=== PATIENT | male | born 1975 | race Caucasian/White ===

== ENCOUNTER → 2021-03-12 | Outpatient (CLI) | payer BC ==
--- NOTE | 2021-03-12 15:35 | MR ---
EXAMINATION TYPE: MR shoulder RT wo con DATE OF EXAM: 03/12/2021 COMPARISON: None HISTORY: Right shoulder pain Multiplanar multiecho imaging of the right shoulder was performed without contrast. There is full-thickness tear of the supraspinatus tendon near the attachment on the greater tuberosit y of the humerus. There is no retraction. There is subacromial joint space narrowing and impingement. There is hypertrophic spurring at the AC joint. The biceps tendon is intact. Subscapularis tendon is intact. The glenoid cecille appear intact. There i s mild narrowing of the glenohumeral joint space. IMPRESSION: There is anterior full-thickness tear of the supraspinatus tendon. There is small subdeltoid effusion . Minimal shoulder joint effusion. 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 Subacromial join t space narrowing. Multiple small tears in the supraspinatus tendon in the subacromial joint space.
== END | disposition home or self-care (01) ==
LOC: RADMRIMAIN 14:46
PROVIDERS: ATTEND Orthopaedic Surgery
DX: M75.121 Complete rotator cuff tear or rupture of right shoulder, not specified as traumatic (principal); M19.011 Primary osteoarthritis, right shoulder

== ENCOUNTER → 2021-04-29 | Outpatient (CLI) | payer BC ==
[2021-04-29 08:08] LABS: Basophils # (A) 0.1 k/uL (0-0.2); Basophils % (A) 1 %; Eosinophils # (A) 0.3 k/uL (0-0.7); Eosinophils % (A) 3 %; HCT 47.4 % (39.0-53.0); HGB 15.7 gm/dL (13.0-17.5); Lymphocytes % (A) 20 %; MCH 29.3 pg (25.0-35.0); MCHC 33.1 g/dL (31.0-37.0); MCV 88.4 fL (80.0-100.0); Mean Platelet Volume 7.8; Monocytes # (A) 0.5 k/uL (0-1.0); Monocytes % (A) 5 %; Neutrophils # (A) 7.2 k/uL (1.3-7.7); Neutrophils % (A) 70 %; Platelet Count 297 k/uL (150-450); RBC 5.36 m/uL (4.30-5.90); RDW 14.2 % (11.5-15.5); WBC 10.4 k/uL (3.8-10.6)
== END | disposition home or self-care (01) ==
LOC: LABPAT 07:05
PROVIDERS: ATTEND Orthopaedic Surgery
DX: Z01.812 Encounter for preprocedural laboratory examination (principal); M75.41 Impingement syndrome of right shoulder
CPT/HCPCS: 36415; 80051; 85025

== ENCOUNTER 2021-05-13 06:59 | Day surgery (SDC) | payer BC ==
[2021-05-10 10:04] VITALS: BMI 29.8
--- NOTE | 2021-05-12 09:06 | HP ---
HISTORY AND PHYSICAL CHIEF COMPLAINT: Right shoulder pain. 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 He is having pain with overhead use and activity. He notes limited motion. He has significant nighttime symptoms. He has tried injections in addition to therapy along with medications with only partial temporary relief. PAST MEDICAL HISTORY: Significant for hypertension. PAST SURGICAL HISTORY: Negative. CURRENT MEDICATIONS: Lisinopril and Motrin. He denies drug allergies. FAMILY HISTORY: Noncontributory. SOCIAL HISTORY: Significant for 1 pack per day tobacco use. REVIEW OF SYSTEMS: Sixteen-point review of systems is otherwise reviewed and is noncontributory. PHYSICAL EXAMINATION: On examination, the patient is approximately 5 foot 6, 183 pounds of endomorphic habitus. HEENT exam is nonfocal. Neck is supple. He has painless cervical spine motion with negative Spurling's. Active range of motion of the right shoulder. forward elevation 155 degrees, external rotation of the arm side 35 degrees internal rotation to L2. Motor strength is 5 minus over 5 for external rotation and abduction. Impingement test, Neer test, and Speed test are positive. His distal neurovascular exam appears intact in the right upper extremity. MRI report right shoulder 03/12/2021 shows evidence of a full-thickness tear of the anterior aspect of the supraspinatus. IMPRESSION: Right shoulder impingement with symptomatic rotator cuff tear. RECOMMENDATIONS: I talked to the patient at length regarding his condition along with treatment options. At this point, he is quite symptomatic and limited despite previous conservative measures. After thorough discussion, he opts to proceed with surgery. We will plan to proceed with arthroscopic evaluation with probable subacromial decompression and rotator cuff repair. We will likely perform that as an outpatient procedure. Risks and benefits were discussed at length in layman's terms. MMODL / IJN: [id number] /
[~2021-05-13 06:59] MED LIST: DEXAMETHASONE SOD PHOSPHATE 4 MG/ML 1 ML VIAL IV ONE; LACTATED RINGERS 1,000 ML IV SCH; LIDOCAINE 1% (10MG/ML) FOR IV START INTRADERMA PRN; MIDAZOLAM 2 MG/2 ML VIAL IV PRN; ONDANSETRON 4 MG/2 ML VIAL IVP ONE
[2021-05-13] MEDS ORDERED: HYDROmorphone 0.5 MG/0.5 ML SYRINGE IVP PRN (07:00)
[2021-05-13 07:25] VITALS: RESP 16
[2021-05-13] MEDS ORDERED: MIDAZOLAM 2 MG/2 ML VIAL IVP ONE (07:59)
[2021-05-13] MEDS ORDERED: LIDOCAINE 1% INJ 10MG/ML (20 ML MDV) ONE (08:50)
[2021-05-13] MEDS ORDERED: ROPIVACAINE 5 MG/ML 30 ML VIAL ONE (08:50)
[2021-05-13] MEDS ORDERED: DEXAMETHASONE SOD PHOSPHATE 4 MG/ML 1 ML VIAL ONE (08:50)
[2021-05-13] MEDS ORDERED: SUCCINYLCHOLINE CHLORIDE 100 MG/5 ML SYR IV ONE (08:50)
[2021-05-13] MEDS ORDERED: NEOSTIGMINE 1 MG/ML 10 ML VIAL ONE (08:50)
[2021-05-13] MEDS ORDERED: GLYCOPYRROLATE 0.2 MG/ML 2 ML VIAL ONE (08:50)
[2021-05-13] MEDS ORDERED: PROPOFOL 10 MG/ML 20 ML VIAL IV ONE (08:50)
[2021-05-13] MEDS ORDERED: fentaNYL (PF) 50 MCG/ML 2 ML AMP ONE (08:50)
[2021-05-13] MEDS ORDERED: ROCURONIUM 10 MG/ML (5 ML VIAL) IV ONE (08:50)
[2021-05-13] MEDS ORDERED: ePHEDrine SULFATE/0.9% NACL/PF 50 MG/5 ML SYRINGE IV ONE (08:50)
[2021-05-13] MEDS ORDERED: EPINEPHrine (PF) 1 ML in SODIUM CHLORIDE 0.9% IRRIGATIO 3,000 ML IRRIGATION ONE ×8 (08:53)
--- NOTE | 2021-05-13 10:16 | P.OP ---
Date of Procedure: 05/13/21 Preoperative Diagnosis: Symptomatic right rotator cuff tear Postoperative Diagnosis: 2 cm full-thickness right rotator cuff tear, acromioclavicular joint arthritis, subacromial impingement, high-grade partial-thickness tear long head of the biceps Procedure(s) Performed: Right shoulder arthroscopic subacromial decompression/distal clavicular resection/rotator cuff repair/biceps tenotomy Implants: Arthrex 4.75 mm swivel lock anchor times one, 5.5 mm swivel lock anchor 1 Anesthesia: JACQUELINE, regional Surgeon: Chacho Navarrete Data Manager #1: Kristofer Ramirez Estimated Blood Loss (ml): 10 Pathology: none sent Condition: stable Disposition: PACU Indications for Procedure: The patient's a 45-year-old male presents with persistent/progressive right shoulder pain despite conservative measures. A discussion of the risks and benefits of operative intervention versus continued conservative measures was made with patient. He opted to proceed with surgery. Operative risks to include infection, neurovascular injury, development of blood clots, possible tendon rerupture, possible postoperative stiffness and need for subsequent procedures was discussed. Informed consent was obtained. Operative Findings: As below Description of Procedure: The patient was brought to the operating room, and after induction of general anesthesia was placed in a beachchair position. A preoperative interscalene block was placed for postoperative analgesia. I examined the right shoulder. There was no gross block to passive motion or gross glenohumeral instability. The right upper extremity was prepped and draped in normal fashion. The bony outlines the acromion, distal clavicle, and coracoid process were outlined with a skin marker. The glenohumeral joint was inflated with 50 mL of saline utilizing a spinal needle from posterior approach. A posterior portal was made through a 5 mm skin incision 1 cm medial and inferior to the posterior lateral border time. A blunt trocar was used to easily into the joint. Diagnostic arthroscopy was performed. An anterior portal was made just lateral to the coracoid process entering the joint above the subscapularis tendon. The subscapularis tendon appeared to be intact. Anterior labrum was intact. The inferior recess was inspected. The posterior labrum was intact. There was a high-grade partial-thickness tear of the long head of the biceps involving interarticular portion. It was elected to proceed with release at this point. This was released from the superior labrum with electrocautery and was allowed to retract to the bicipital groove. On inspection the rotator cuff, a full- thickness tear involving the supraspinatus was noted with mild retraction. A lateral portal was made 2 centimeters inferior to the anterior lateral border of the acromion. The rotator cuff was then mobilized with a traction suture. This was then easily brought back to the greater tuberosity. The soft tissue on the undersurface of the acromion was debrided with a motorized shaver and electrocautery clearly defining the anterior medial and lateral borders as well as the distal clavicle. An anterior inferior acromioplasty was performed with a motorized rachel starting anterolateral, then extending this posteriorly, then extending this medially. I converted to a flat acromion and this was verified in the posterior and lateral viewing portals. There was impingement by the distal clavicle therefore the distal 4 mm was resected with a motorized bur. The greater tuberosity was lightly decorticating with a shaver down to a bleeding bony surface. An accessory superior lateral portal was made just off the lateral edge of the acromion for anchor placement. One anchor was then placed just off the articular surface with the appropriate starting awl. A preloaded 4.75 mm anchor was placed just off the articular surface. Good purchase was obtained. These fiber tapes were then passed the rotator cuff with a scorpion suture passer. A lateral row was created utilizing these fiber tapes along with the traction suture. Good purchase was obtained. Final arthroscopic view showed adequate compression at the footprint. The arthroscope was then removed. The portals were closed with simple 3-0 nylon sutures. A sterile dressing was applied in addition to a sling. The patient was then awoken from general anesthesia and transferred to recovery room in good condition. Blood loss was estimated at 10 mL. No complications were incurred. Sponge and needle counts were correct in the case. Kristofer BOWENS assisted and the major c omponents of the case to include arm positioning, anchor placement, and rotator cuff repair.
[2021-05-13 10:25] VITALS: TEMP 96.8
[2021-05-13 11:05] VITALS: BP 119/78; PULSE 79
--- NOTE | 2021-05-13 12:38 | P.ANPRN ---
Procedure Note - Anesthesia - Nerve Block Performed Right Interscalene Single Time Out Performed: Yes Date of Procedure: 05/13/21 Procedure Start Time: 07:58 Procedure Stop Time: 08:03 Location of Patient: Imaging Indication: Requested by Surgeon Sedation Type: Sedate with meaningful contact maintained Preparation: Sterile Prep Position: Supine Needle Types: Pajunk Needle Gauge: 21 Ultrasound used to visualize needle placement: Yes Ultrasound used to observe medication spread: Yes Blood Aspirated: No Pain Paresthesia on Injection Noted: No Resistance on Injection: Normal Image Stored and Saved: Yes Events: Uneventful and Well Tolerated (Ropivacaine 0.5% 25 mL plus dexamethasone 4 mg)
== END 2021-05-13 11:36 | disposition home or self-care (01) ==
LOC: OR 06:59
PROVIDERS: ATTEND Orthopaedic Surgery
DX: M75.111 Incomplete rotator cuff tear or rupture of right shoulder, not specified as traumatic (principal); M75.121 Complete rotator cuff tear or rupture of right shoulder, not specified as traumatic; I10 Essential (primary) hypertension; F17.210 Nicotine dependence, cigarettes, uncomplicated; Z79.1 Long term (current) use of non-steroidal anti-inflammatories (NSAID); Z79.899 Other long term (current) drug therapy; Z88.0 Allergy status to penicillin
CPT/HCPCS: 29824; 29826; 29827; 29828; 64415; 76942; C1713 ×3; C1894; J2250; J1100; J2710; J0690; J2405; J0171; J2001; J3010; J2795; J0330; J2704

== ENCOUNTER 2023-09-27 21:01 | Emergency (ER) | payer BC ==
[2023-09-27 21:23] VITALS: RESP 18; TEMP 98.3
--- NOTE | 2023-09-27 21:25 | ED ---
Chest Pain HPI - General Source: patient, EMS, RN notes reviewed, old records reviewed Mode of arrival: EMS Limitations: no limitations - History of Present Illness MD Complaint: chest pain -: days(s) (3) Onset: during rest, during exertion Pain Location: substernal, left chest Pain Radiation: LUE, back Severity: mild Severity scale (1-10): 7 Quality: aching, heaviness Consistency: constant, intermittent Improves With: nothing Worsens With: nothing Anginal Symptoms: dyspnea Other Symptoms: palpitations Treatments Prior to Arrival: none <Chase Montoya - Last Filed: 09/27/23 22:06> <Cecilia Ayala - Last Filed: 09/28/23 02:10> - General Chief Complaint: Chest Pain Stated Complaint: CHEST PAIN Time Seen by Provider: 09/27/23 21:09 - History of Present Illness Initial Comments: This is a 47-year-old male to the ER for evaluation of chest pain today. Patient had chest pain for 3 days with an elevated blood pressure. History of hypertension history of smoking and strong family history of heart disease. Patient has current chest pain here in the ER with elevated troponin and some significant anxiety, occasional shortness of breath (Chase Montoya) - Related Data Home Medications Medication Instructions Recorded Confirmed lisinopriL 40 mg PO DAILY 09/27/23 09/27/23 Allergies Allergy/AdvReac Type Severity Reaction Status Date / Time Penicillins Allergy Unknown Verified 09/27/23 22:41 Childhood Review of Systems ROS Other: All systems not noted in ROS Statement are negative. <Chase Montoya - Last Filed: 09/27/23 22:06> ROS Other: All systems not noted in ROS Statement are negative. <Cecilia Ayala - Last Filed: 09/28/23 02:10> ROS Statement: Those systems with pertinent positive or pertinent negative responses have been documented in the HPI. EKG Findings - EKG Comments: EKG Findings:: EKG is sinus 82 NH 150 QRS 94 QTc 399 - EKG Results: EKG: interpreted by ERMD <Chase Montoya - Last Filed: 09/27/23 22:06> Past Medical History Past Medical History: Hypertension Past Surgical History: Orthopedic Surgery Additional Past Surgical History / Comment(s): shoulder surgery Past Psychological History: No Psychological Hx Reported Smoking Status: Current every day smoker Past Alcohol Use History: None Reported Past Drug Use History: Marijuana <Chase Montoya - Last Filed: 09/27/23 22:06> General Exam Limitations: no limitations General appearance: alert, in no apparent distress Head exam: Present: atraumatic, normocephalic, normal inspection Eye exam: Present: normal appearance, PERRL, EOMI. Absent: scleral icterus, conjunctival injection, periorbital swelling ENT exam: Present: normal exam, mucous membranes moist Neck exam: Present: normal inspection. Absent: tenderness, meningismus, lymphadenopathy Respiratory exam: Present: normal lung sounds bilaterally. Absent: respiratory distress, wheezes, rales, rhonchi, stridor Cardiovascular Exam: Present: regular rate, normal rhythm, normal heart sounds. Absent: systolic murmur, diastolic murmur, rubs, gallop, clicks GI/Abdominal exam: Present: soft, normal bowel sounds. Absent: distended, tenderness, guarding, rebound, rigid Extremities exam: Present: normal inspection, full ROM, normal capillary refill. Absent: tenderness, pedal edema, joint swelling, calf tenderness Back exam: Present: normal inspection Neurological exam: Present: alert, oriented X3, CN II-XII intact Psychiatric exam: Present: normal affect, normal mood Skin exam: Present: warm, dry, intact, normal color. Absent: rash <Chase Montoya - Last Filed: 09/27/23 22:06> Course <Chase Montoya - Last Filed: 09/27/23 22:06> Vital Signs 09/27/23 09/27/23 09/27/23 21:02 22:18 23:52 Temperature 98.3 F Pulse Rate 81 74 80 Respiratory 18 18 18 Rate Blood Pressure 171/108 141/95 150/95 O2 Sat by Pulse 98 98 96 Oximetry - Reevaluation(s) Reevaluation #1: 09/27/23 22:07 Medical records reviewed (Chase Montoya) Reevaluation #4: 09/27/23 22:07 Was pt. sent in by a medical professional or institution (, PA, FIREWALL ENGINEER, urgent care, hospital, or prison...) When possible be specific @ -no Did you speak to anyone other than the patient for history (EMS, parent, family, police, friend...)? What history was obtained from this source @ -no Did you review nursing and triage notes (agree or disagree)? Why? @ -agree Are old charts reviewed (outside hosp., previous admission, EMS record, old EKG, old radiological studies, urgent care reports/EKG's, prison records)? Report findings @ -yes Differential Diagnosis (chest pain, altered mental status, abdominal pain women, abdominal pain men, vaginal bleeding, weakness, fever, dyspnea, syncope, headache, dizziness, GI bleed, back pain, seizure, CVA, palpatations, mental health, musculoskeletal)? @ -prior EKG interpreted by me (3pts min.). @ -yes X-rays interpreted by me (1pt min.). @ -yes negative for acute disease CT interpreted by me (1pt min.). @ -no U/S interpreted by me (1pt. min.). @ -no What testing was considered but not performed or refused? (CT, X-rays, U/S, labs)? Why? @ -none What meds were considered but not given or refused? Why? @ -none Did you discuss the management of the patient with other professionals (prof handy i.e. , PA, FIREWALL ENGINEER, lab, RT, psych nurse, child protective services social worker, film laboratory technician, teacher, chief digital media officer, disease case manager)? Give summary @ -no Was smoking cessation discussed for >3mins.? @ -no Was critical care preformed (if so, how long)? @ -no Were there social determinants of health that impacted care today? How? (Homelessness, low income, unemployed, alcoholism, drug addiction, transportation, low edu. Level, literacy, decrease access to med. care, penitentiary, rehab)? @ -none Was there de-escalation of care discussed even if they declined (Discuss DNR or withdrawal of care, Hospice)? DNR status @ -no What co-morbidities impacted this encounter? (DM, HTN, Smoking, COPD, CAD, Cancer, CVA, ARF, Chemo, Hep., AIDS, mental health diagnosis, sleep apnea, morbid obesity)? @ -none Was patient admitted / discharged? Hospital course, mention meds given and route, prescriptions, significant lab abnormalities, going to OR and other pertinent info. @ - Undiagnosed new problem with uncertain prognosis? @ -no Drug Therapy requiring intensive monitoring for toxicity (Heparin, Nitro, Insulin, Cardizem)? @ -no Were any procedures done? @ -no Diagnosis/symptom? @ - Acute, or Chronic, or Acute on Chronic? @ -Acute Uncomplicated (without systemic symptoms) or Complicated (systemic symptoms)? @ -Complicated Side effects of treatment? @ -no Exacerbation, Progression, or Severe Exacerbation? @ -exacerbation Poses a threat to life or bodily function? How? (Chest pain, USA, ME, pneumonia, PE, COPD, DKA, ARF, appy, cholecystitis, CVA, Diverticulitis, Homicidal, Suicidal, threat to staff... and all critical care pts) @ -yes (Chase Montoya) Reevaluation #5: 09/27/23 22:07 Differential Chest Pain: Stable Angina, Unstable Angina, STEMI, NSTEMI Aortic Dissection, Pneumothorax, Musculoskeletal, Esophageal Spasm GERD, Cholecystitis, Pancreatitis, Zoster, this is not meant to be an all-inclusive list. (Chase Montoya) Chest Pain MDM <Cecilia Ayala P - Last Filed: 09/28/23 02:10> - MDM EKG interpreted by me (3pts min.). @ -As above X-rays interpreted by me (1pt min.). @ -No focal consolidations, no pneumothorax, no widened mediastinum no pneumomediastinum CT interpreted by me (1pt min.). @ -No large pulmonary embolisms no evidence of aortic dissection Was patient admitted / discharged? Hospital course, mention meds given and route, prescriptions, significant lab abnormalities, going to OR and other pertinent info. @ -Discharge Patient was initially seen and evaluated by Dr. Montoya Patient was signed out to me pending the results of his CT scan. Patient CT scan resulted with no evidence of pulmonary embolism or aortic dissection. Patient had negative troponins and nonischemic EKG. I evaluated the patient who is asymptomatic upon my evaluation. Patient reported 3 days of persistent chest pain but states that he became Somewhat anxious about it due to family history decided to come to the ER today for further management. Patient is reassured by his negative workup at this time. I did offer to Paces the patient in observation for evaluation by cardiology however patient states that he is feeling well and does not wish to be admitted at this time. Patient will follow-up outpatient with his primary care. He has seen his primary care recently for establishing care and has plans for outpatient lab workup. He will see his primary care next week for reevaluation of hypertension. Close return parameters were discussed patient was discharged home in stable condition. Undiagnosed new problem with uncertain prognosis? @ -No Drug Therapy requiring intensive monitoring for toxicity (Heparin, Nitro, Insulin, Cardizem)? @ -No Were any procedures done? @ -No Diagnosis/symptom? @ -Chest pain, hypertension Acute, or Chronic, or Acute on Chronic? @ -Acute Uncomplicated (without systemic symptoms) or Complicated (systemic symptoms)? @ -Uncomplicated Side effects of treatment? @ -No Exacerbation, Progression, or Severe Exacerbation? @ -No Poses a threat to life or bodily function? How? (Chest pain, USA, ME, pneumonia, PE, COPD, DKA, ARF, appy, cholecystitis, CVA, Diverticulitis, Homicidal, Suicidal, threat to staff... and all critical care pts) @ -Unlikely (Cecilia Ayala) Disposition <Chase Montoya - Last Filed: 09/27/23 22:06> Is patient prescribed a controlled substance at d/c from ED?: No <Cecilia Ayala - Last Filed: 09/28/23 02:10> Clinical Impression: Chest pain, Hypertension Disposition: HOME SELF-CARE Condition: Stable Instructions (If sedation given, give patient instructions): Chest Pain (ED) Additional Instructions: Follow up with primary care and cardiology for further outpatient workup and management of hypertension. Return to the ER immediately if you have any worsening chest pain, shortness of breath or development of new or concerning symptoms. Referrals: None,Stated [REFERRING] - 1-2 days
[2023-09-27 21:55] LABS: ALT 42 U/L (4-49); AST 32 U/L (17-59); African American GFR (CKD) >90 (>60 ml/min/1.73 sqM); Albumin 4.5 g/dL (3.5-5.0); Alkaline Phosphatase 71 U/L (38-126); Anion Gap 7 mmol/L; Blood Urea Nitrogen 11 mg/dL (9-20); Calcium 9.8 mg/dL (8.4-10.2); Carbon Dioxide 23 mmol/L (22-30); Chloride 107 mmol/L (98-107); Glucose 92 mg/dL (74-99); Lipase 51 U/L (23-300); Magnesium 1.9 mg/dL (1.6-2.3); Non-African American GFR(CKD) >90 (>60 ml/min/1.73 sqM); Potassium 3.9 mmol/L (3.5-5.1); Sodium 137 mmol/L (137-145); Total Bilirubin 0.6 mg/dL (0.2-1.3); Total Protein 7.3 g/dL (6.3-8.2)
[2023-09-27 21:58] LABS: Basophils # (A) 0.1 k/uL (0-0.2); Basophils % (A) 1 %; Eosinophils # (A) 0.2 k/uL (0-0.7); Eosinophils % (A) 2 %; HCT 45.5 % (39.0-53.0); HGB 15.5 gm/dL (13.0-17.5); Lymphocytes # (A) 2.2 k/uL (1.0-4.8); Lymphocytes % (A) 21 %; MCH 29.8 pg (25.0-35.0); MCV 87.7 fL (80.0-100.0); Mean Platelet Volume 8.5; Monocytes # (A) 0.6 k/uL (0-1.0); Monocytes % (A) 6 %; Neutrophils # (A) 7.3 k/uL (1.3-7.7); Neutrophils % (A) 69 %; Platelet Count 227 k/uL (150-450); RBC 5.19 m/uL (4.30-5.90); RDW 13.4 % (11.5-15.5); WBC 10.7 k/uL (3.8-10.6)
[2023-09-27 22:03] LABS: NT-Pro-B-Type Natriuretic Pept 41 pg/mL
[2023-09-27 22:06] LABS: INR 0.9 (<1.2); Partial Thromboplastin Time 23.6 sec (22.0-30.0); Prothrombin Time 10.4 sec (10.0-12.5)
--- NOTE | 2023-09-27 22:16 | XR ---
EXAMINATION TYPE: XR chest 2V DATE OF EXAM: 09/27/2023 9:27 PM CLINICAL INDICATION:Male, 47 years old with history of Chest Pain; [facility] COMPARISON: Chest radiographs from 10/11/2022 TECHNIQUE: XR chest 2V Frontal and lateral views of the chest. FINDINGS: Lungs/Pleura: There is no evidence of pleural effusion, focal consolidation, or pneumothorax. Pulmonary vascularity: Unremarkable. Heart/mediastinum: Cardiomediastinal silhouette is unremarkable. Musculoskeletal: No acute osseous pathology. Other findings: None IMPRESSION: No acute cardiopulmonary disease/process.
--- NOTE | 2023-09-27 23:05 | CT ---
EXAMINATION TYPE: CT angio chest DATE OF EXAM: 09/27/2023 COMPARISON: NONE HISTORY: Chest pain x 4 days. Recently put on new BP medication- CT DLP: 472.5 mGycm. Automated Exposure Control for Dose Reduction was Utilized. CONTRAST: CTA scan of the thorax is performed with IV Contrast, patient injected with 100 mL of Isovue 370, pul monary embolism protocol. MIP Images are created on CT scanner and reviewed. FINDINGS: LUNGS: Dependent opacity favors atelectasis in both lower lobes. No suspicious focal consolidation. N o pleural effusion or pneumothorax seen bilaterally. MEDIASTINUM: Suboptimal study with most dense contrast in SVC. There is no convincing CT evidence for acute pulmonary embolism. Enhancement of the thoracic aorta without aneurysm or dissection. There a re no greater than 1 cm hilar or mediastinal lymph nodes. No cardiomegaly or pericardial effusion i s seen. OTHER: Mild to moderate multilevel spurring in the thoracic spine is seen. IMPRESSION: Suboptimal study without acute pulmonary embolism. No suspicious acute pulmonary process.
[2023-09-28 00:20] VITALS: BP 150/95; PULSE 80
== END 2023-09-27 23:58 | disposition home or self-care (01) ==
LOC: EC 21:01
DX: R07.89 Other chest pain (principal); I10 Essential (primary) hypertension; F17.200 Nicotine dependence, unspecified, uncomplicated; F12.90 Cannabis use, unspecified, uncomplicated; Z88.0 Allergy status to penicillin; Z79.899 Other long term (current) drug therapy
CPT/HCPCS: 36415; 93005; 85379; 83880; 80053; 83690; 83735; 84484; 85025; 85610; 85730; 71046; 71275; 99285; Q9967